=== PATIENT | female | born 1955 | race Caucasian/White ===

== ENCOUNTER → 2018-09-19 | Outpatient (CLI) | payer OTHER ==
--- NOTE | 2018-09-19 11:28 | Diagnostic Imaging Report ---
PROCEDURE: CT urinary tract, rule out kidney stone. TECHNIQUE: Multiple contiguous axial images were obtained through the abdomen and pelvis without the use of intravenous contrast. INDICATION: Left kidney pain and nausea. No prior studies are available for comparison. Imaging through lung bases does show some minimal scarring or atelectasis in the lingula. No discrete liver mass is seen. The gallbladder is surgically absent. No biliary ductal dilatation is identified. The pancreas and spleen are unremarkable. No adrenal mass is identified. Right kidney contains a tiny nonobstructing calculus in its midportion. Maybe a second calcification in the lower pole of the right kidney as well measuring 5 mm. No hydronephrosis is identified. Left kidney contains a very large staghorn calculus occupying the upper, mid and lower pole calyces and infundibuli extending into the renal pelvis. No left ureteral calculi are seen. There is mild left hydronephrosis. Aorta is calcified but nonaneurysmal. Small and large bowel loops are normal caliber and appear nonobstructed. The appendix is visualized. Appendix contains a tiny appendicolith. No inflammation surrounding the appendix is seen. There is no ascites. The bladder is unremarkable. There does appear to be central retroperitoneal lymphadenopathy. Largest node in left para-aortic location measures 3.1 x 1.8 cm. There are additional smaller nodes present as well. No mesenteric lymphadenopathy is seen. No definite inguinal lymphadenopathy is identified. There is a slightly prominent iliac node on the right measuring 1.5 x 0.8 cm. The bony structures are nonacute. IMPRESSION: 1. Very large staghorn calculus occupying the majority of the left renal collecting system and renal pelvis producing mild hydronephrosis. No definite ureteral calculi are seen. There are tiny nonobstructing right renal calculi present. 2. Central retroperitoneal lymphadenopathy, etiology indeterminate. Neoplastic or lymphomatous process cannot be excluded. A mildly prominent lymph node right iliac region is also seen. Dictated by: Dictated on workstation # [id number]
== END ==
LOC: RAD 10:46
PROVIDERS: ATTEND Family Medicine
DX: N13.2 Hydronephrosis with renal and ureteral calculous obstruction (principal); N30.90 Cystitis, unspecified without hematuria; R59.0 Localized enlarged lymph nodes; Z90.49 Acquired absence of other specified parts of digestive tract
CPT/HCPCS: 74176

== ENCOUNTER → 2018-09-25 | Outpatient (CLI) | payer OTHER ==
--- NOTE | 2018-09-25 17:02 | Diagnostic Imaging Report ---
EXAMINATION: Supine abdomen at 2:59 p.m. INDICATION: Left nephrolithiasis. TECHNIQUE: Two supine views were obtained. FINDINGS: The CT abdomen/pelvis exam of 09/19/2018 did note a staghorn calculus formation in the left kidney. That finding is again evident on this study and does not seem to have changed significantly. The prior study also noted two small (5 mm or less) within the right kidney. Those calcifications are difficult to appreciate on this study. There is still no evidence for a calculus along the expected paths of the ureter or overlying the bladder. The overall appearance of the abdomen is otherwise unremarkable. There is gas in both the large and small bowel in a nonspecific fashion. There is no sign of bowel obstruction. There is no mass or organomegaly appreciated. The osseous structures are intact. IMPRESSION: 1. The staghorn calculus seen involving the left kidney on the prior study is again evident and no different. The minute calculi within the right kidney are difficult to appreciate, however. 2. There is still no evidence for a calculus along the expected paths of the ureter. Dictated by: Dictated on workstation # [id number]
== END ==
LOC: RAD 14:48
PROVIDERS: ATTEND Urology
DX: N20.0 Calculus of kidney (principal)
CPT/HCPCS: 74018

== ENCOUNTER 2019-12-30 13:04 | Emergency (ER) | payer OTHER ==
[~2019-12-30] VITALS: Ht 162.5 cm; Wt 95.4 kg
[2019-12-30] MEDS ORDERED: NS IV 500 ML 500 ML IV STA (13:23)
--- NOTE | 2019-12-30 13:27 | ED General ---
General Chief Complaint: Dizziness/Syncope Stated Complaint: HYPERGLYCEMIA (362) Source of Information: Patient, Old Records, RN/MD History of Present Illness Date Seen by Provider: Dec 30, 2019 Time Seen by Provider: 13:24 Initial Comments This patient is a 64-year-old female that presents to the emergency department complaining of dizziness and not feeling well. Patient states this began going on all day. Patient's glucose after she left her work was 366. We did have a protein shake earlier. Patient states she has a long history of kidney problems and has had some sepsis due to pyelonephritis in the past. Patient denies any dysuria. Patient states she's been underneath a lot of stress in her PCP has prescribed Xanax but she refuses to take it because it makes her sleepy we'll do medical evaluation treatment is needed Timing/Duration: 4-6 Hours Allergies and Home Medications Allergies Coded Allergies: No Known Drug Allergies (Unverified , 12/30/19) Patient Home Medication List Home Medication List Reviewed: Yes Review of Systems Review of Systems Constitutional: No no symptoms reported; see HPI; No chills, No diaphoresis; dizziness; No fever, No malaise, No weakness, No weight gain, No weight loss, No other EENTM: No see HPI, No no symptoms reported, No ear discharge, No hearing loss, No ear pain, No blurred vision, No double vision, No eye pain, No tearing, No vision loss, No dental problems, No hoarseness, No mouth pain, No mouth swelling , No epistaxis, No nose congestion, No nose pain, No throat pain, No throat swelling, No other Respiratory: No no symptoms reported, No see HPI, No cough, No dyspnea on exertion, No hemoptysis, No orthopnea, No phlegm, No short of breath, No stridor, No wheezing, No other Cardiovascular: No no symptoms reported, No see HPI, No chest pain, No edema, No Hx of Intervention, No palpitations, No syncope, No vascular heart diseas, No other Gastrointestinal: No RUQ, No LUQ, No RLQ, No LLQ, No no symptoms reported, No see HPI, No abdominal pain, No constipation, No diarrhea, No dysphagia, No hematemesis, No heartburn, No jaundice, No loss of appetite, No melena, No nausea, No vomiting, No other Genitourinary: No no symptoms reported, No see HPI, No decreased output, No discharge, No dysuria, No frequency, No hematuria, No hesitancy, No incontinence, No nocturia, No pain, No other Musculoskeletal: No no symptoms reported, No see HPI, No back pain, No gout, No joint pain, No joint swelling, No muscle pain, No muscle stiffness, No muscle cramps, No muscle twitching, No muscle weakness, No neck pain, No other Skin: No no symptoms reported, No see HPI, No change in color, No change in hair/nails, No dryness, No hx of skin cancer, No lesions, No lumps, No pruritus, No rash, No other Psychiatric/Neurological: Denies No Symptoms Reported, Denies See HPI, Denies Anxiety, Denies Depressed, Denies Emotional Problems, Denies Headache, Denies Numbness, Denies Paresthesia, Denies Pre-Existing Deficit, Denies Seizure, Denies Tingling, Denies Tremors, Denies Weakness, Denies Other All Other Systems Reviewed Negative Unless Noted: Yes Past Jjhpbdf-Lxwgux-Maaviy Hx Patient Social History Recent Foreign Travel: No Contact w/Someone Who Travel: No Physical Exam Vital Signs Vital Signs - First Documented 12/30/19 13:10 Temp 36.6 Pulse 71 Resp 18 B/P (MAP) 156/77 (103) Pulse Ox 97 O2 Delivery Room Air Capillary Refill : Height, Weight, BMI Height: '" Weight: lbs. oz. kg; BMI Method: General Appearance: No Apparent Distress, WD/WN Respiratory: Chest Non Tender, Lungs Clear, Normal Breath Sounds, No Accessory Muscle Use, No Respiratory Distress Cardiovascular: Regular Rate, Rhythm, No Edema, No Gallop, No JVD, No Murmur, Normal Peripheral Pulses Back: Normal Inspection, No CVA Tenderness, No Vertebral Tenderness Neurologic/Psychiatric: Alert, Oriented x3, No Motor/Sensory Deficits, Normal Mood/Affect Skin: Normal Color, Warm/Dry Focused Exam Lactate Level 12/30/19 13:50: Lactic Acid Level 1.42 Lactic Acid Level Laboratory Tests Test 12/30/19 13:50 Lactic Acid Level 1.42 MMOL/L (0.50-2.00) Progress/Results/Core Measures Suspected Sepsis SIRS Temperature: Pulse: Respiratory Rate: Laboratory Tests 12/30/19 13:50: White Blood Count 7.9 Blood Pressure / Mean: 12/30/19 13:50: Lactic Acid Level 1.42 Laboratory Tests 12/30/19 13:50: Creatinine 0.70, Platelet Count 246, Total Bilirubin 0.4 Results/Orders Lab Results Laboratory Tests Test 12/30/19 13:30 12/30/19 13:41 12/30/19 13:50 Range/Units Urine Color YELLOW Urine Clarity SLT CLOUDY Urine pH 6.0 5-9 Urine Specific [place] 1.015 L 1.016-1.022 Urine Protein NEGATIVE NEGATIVE Urine Glucose (UA) 3+ H NEGATIVE Urine Ketones TRACE H NEGATIVE Urine Nitrite NEGATIVE NEGATIVE Urine Bilirubin NEGATIVE NEGATIVE Urine Urobilinogen 0.2 < = 1.0 MG/DL Urine Leukocyte Esterase TRACE H NEGATIVE Urine RBC (Auto) TRACE H NEGATIVE Urine RBC RARE /HPF Urine WBC 25-50 H /HPF Urine Squamous Epithelial Cells 0-2 /HPF Urine Crystals NONE /LPF Urine Bacteria NEGATIVE /HPF Urine Casts NONE /LPF Urine Mucus NEGATIVE /LPF Urine Culture Indicated YES Glucometer 305 H 70-110 MG/DL White Blood Count 7.9 4.3-11.0 10^3/uL Red Blood Count 4.66 4.35-5.85 10^6/uL Hemoglobin 13.3 11.5-16.0 G/DL Hematocrit 38 35-52 % Mean Corpuscular Volume 82 80-99 FL Mean Corpuscular Hemoglobin 29 25-34 PG Mean Corpuscular Hemoglobin Concent 35 32-36 G/DL Red Cell Distribution Width 13.9 10.0-14.5 % Platelet Count 246 130-400 10^3/uL Mean Platelet Volume 10.3 7.4-10.4 FL Neutrophils (%) (Auto) 55 42-75 % Lymphocytes (%) (Auto) 36 12-44 % Monocytes (%) (Auto) 7 0-12 % Eosinophils (%) (Auto) 2 0-10 % Basophils (%) (Auto) 0 0-10 % Neutrophils # (Auto) 4.4 1.8-7.8 X 10^3 Lymphocytes # (Auto) 2.9 1.0-4.0 X 10^3 Monocytes # (Auto) 0.5 0.0-1.0 X 10^3 Eosinophils # (Auto) 0.2 0.0-0.3 10^3/uL Basophils # (Auto) 0.0 0.0-0.1 10^3/uL Sodium Level 137 135-145 MMOL/L Potassium Level 4.2 3.6-5.0 MMOL/L Chloride Level 101 98-107 MMOL/L Carbon Dioxide Level 21 21-32 MMOL/L Anion Gap 15 H 5-14 MMOL/L Blood Urea Nitrogen 13 7-18 MG/DL Creatinine 0.70 0.60-1.30 MG/DL Estimat Glomerular Filtration Rate > 60 BUN/Creatinine Ratio 19 Glucose Level 313 H 70-105 MG/DL Lactic Acid Level 1.42 0.50-2.00 MMOL/L Calcium Level 9.4 8.5-10.1 MG/DL Corrected Calcium 9.2 8.5-10.1 MG/DL Total Bilirubin 0.4 0.1-1.0 MG/DL Aspartate Amino Transf (AST/SGOT) 32 5-34 U/L Alanine Aminotransferase (ALT/SGPT) 44 0-55 U/L Alkaline Phosphatase 109 40-136 U/L Total Protein 7.8 6.4-8.2 GM/DL Albumin 4.3 3.2-4.5 GM/DL My Orders Orders - JENNIFER VINES MD Ed Iv/Invasive Line Start (12/30/19 13:20) Cbc With Automated Diff (12/30/19 13:20) Comprehensive Metabolic Panel (12/30/19 13:20) Urinalysis (12/30/19 13:20) Ekg Tracing (12/30/19 13:20) Chest 1 View Ap/Pa Only (12/30/19 13:20) Ct Head Wo (12/30/19 13:20) Lactic Acid Analyzer (12/30/19 13:20) Ondansetron Injection (Zofran Injectio (12/30/19 13:30) Ns Iv 500 Ml (Sodium Chloride 0.9%) (12/30/19 13:23) Urine Culture (12/30/19 13:30) Medications Given in ED Current Medications Medications Dose Ordered Sig/Roger Route Start Time Stop Time Status Last Admin Dose Admin Ondansetron HCl 4 mg ONCE ONCE IVP 12/30/19 13:30 12/30/19 13:31 DC 12/30/19 13:59 4 MG Vital Signs/I&O 12/30/19 13:10 Temp 36.6 Pulse 71 Resp 18 B/P (MAP) 156/77 (103) Pulse Ox 97 O2 Delivery Room Air Capillary Refill : Progress Note : Time: 15:13 Progress Note Patient is negative evaluation in the emergency department of the hyperglycemia patient feeling much better blue the patient was have some issues with anxiety/panic issues. Patient states she's been underneath a lot of stress. Discussed at length with patient and she will continue with all home medications. Patient to get a home glucometer check glucose first thing in the morning and with meals. Follow-up with PCP with those readings in a few days discuss possible medication and treatment for her hyperglycemia/underlying diabetes. Patient is states understanding she is discharged home ECG Initial ECG Impression Date: Dec 30, 2019 Initial ECG Impression Time: 14:12 Initial ECG Rate: 74 Initial ECG Rhythm: Normal Sinus Initial ECG Intervals: Normal Initial ECG Impression: Normal Comment Sinus rhythm heart rate 74 Departure Impression Primary Impression: Anxiety Additional Impression: Hyperglycemia Disposition: 01 HOME, SELF-CARE Condition: Stable Departure-Patient Inst. Decision time for Depature: 15:16 Referrals: NAY HAND MD (PCP/Family) Primary Care Physician Patient Instructions: Anxiety, Adult (DC), Hyperglycemia, Adult (DC), Blood Glucose Monitoring Add. Discharge Instructions: Patient to get a home glucometer check glucose first thing in the morning and with meals. Follow-up with PCP with those readings in a few days discuss possible medication and treatment for her hyperglycemia/underlying diabetes. Patient is states understanding she is discharged home All discharge instructions reviewed with patient and/or family. Voiced understanding. JENNIFER VINES MD Dec 30, 2019 13:27
[2019-12-30 13:30] VITALS: BP 148/73
[2019-12-30] MEDS ORDERED: ONDANSETRON 4 MG/2 ML (SDV) Z0FRAN IVP ONE (13:30)
[2019-12-30 14:00] VITALS: BP 142/70
[2019-12-30 14:01] LABS: HEMATOCRIT 38 % (35-52); HEMOGLOBIN 13.3 G/DL (11.5-16.0); MEAN CORPUSCULAR HEMOGLOBIN 29 PG (25-34); MEAN CORPUSCULAR VOLUME 82 FL (80-99); WHITE BLOOD COUNT 7.9 10^3/uL (4.3-11.0)
[2019-12-30 14:02] LABS: BASOPHILS % (AUTO) 0 % (0-10); EOSINOPHILS % (AUTO) 2 % (0-10); LYMPHOCYTES % (AUTO) 36 % (12-44); MEAN CORPUSCULAR HGB CONC 35 G/DL (32-36); MEAN PLATELET VOLUME 10.3 FL (7.4-10.4); MONOCYTES % (AUTO) 7 % (0-12); NEUTROPHILS % (AUTO) 55 % (42-75); PLATELET COUNT 246 10^3/uL (130-400); RED CELL DISTRIBUTION WIDTH 13.9 % (10.0-14.5)
[2019-12-30 14:03] LABS: EOSINOPHILS # (AUTO) 0.2 10^3/uL (0.0-0.3); LYMPHOCYTES # (AUTO) 2.9 X 10^3 (1.0-4.0); MONOCYTES # (AUTO) 0.5 X 10^3 (0.0-1.0); NEUTROPHILS # (AUTO) 4.4 X 10^3 (1.8-7.8)
[2019-12-30 14:23] LABS: ALANINE AMINOTRANSFERASE 44 U/L (0-55); ALKALINE PHOSPHATASE 109 U/L (40-136); BILIRUBIN,TOTAL 0.4 MG/DL (0.1-1.0); BUN/CREATININE RATIO 19; CALCIUM 9.4 MG/DL (8.5-10.1); CARBON DIOXIDE 21 MMOL/L (21-32); CHLORIDE 101 MMOL/L (98-107); GFR ESTIMATED > 60; GLUCOSE 313 MG/DL (70-105); POTASSIUM 4.2 MMOL/L (3.6-5.0); SODIUM 137 MMOL/L (135-145); TOTAL PROTEIN 7.8 GM/DL (6.4-8.2)
[2019-12-30 14:24] LABS: ALBUMIN 4.3 GM/DL (3.2-4.5)
[2019-12-30 14:37] LABS: BILIRUBIN,URINE NEGATIVE (NEGATIVE); CLARITY,URINE SLT CLOUDY; COLOR,URINE YELLOW; GLUCOSE, URINE (UA) 3+ (NEGATIVE); KETONES,URINE TRACE (NEGATIVE); LEUKOCYTE ESTERASE ,URINE TRACE (NEGATIVE); NITRITE,URINE NEGATIVE (NEGATIVE); PROTEIN,URINE NEGATIVE (NEGATIVE)
[2019-12-30 14:38] LABS: BACTERIA,URINE NEGATIVE /HPF; RBC,URINE RARE /HPF; SQUAMOUS EPITHELIAL CELL,UR 0-2 /HPF; WBC,URINE 25-50 /HPF
--- NOTE | 2019-12-30 14:41 | Diagnostic Imaging Report ---
INDICATION: Lightheadedness and dizziness Frontal chest obtained at 0229 p.m. Heart and mediastinal silhouette are normal in appearance. The lungs are clear. There is no pneumothorax or pleural fluid. IMPRESSION: Negative chest. Dictated by: Dictated on workstation # [id number]
--- NOTE | 2019-12-30 14:45 | Diagnostic Imaging Report ---
INDICATION: Dizziness and lightheadedness. EXAMINATION: Noncontrast brain CT is performed. COMPARISON: There is no prior study for comparison. FINDINGS: There are no extra-axial fluid collections. No intracranial hemorrhage. No intracranial mass or mass effect. No midline shift. Ventricles are normal in size and position. There are no focal parenchymal abnormalities in the brain. Calvarial windows appear normal. IMPRESSION: Negative noncontrast brain CT. Dictated by: Dictated on workstation # [id number]
[2019-12-30 15:00] VITALS: BP 141/80
[2019-12-30 15:26] VITALS: BP 147/88
--- OUTSIDE RECORDS SUMMARY | 2019-12-30 16:21 | XMS REPORT | Continuity of Care Document ---
Author Organization Unknown Address Unknown Phone Unavailable Allergies Active Description Code Type Severity Reaction Onset Reported/Identified Relationship to Patient Clinical Status Yes No Known Drug Allergies [id number] Drug Allergy Unknown N/A 12/30/2019 Medications There is no data. Problems Date Dx Coded Attending Type Code Diagnosis Diagnosed By 09/21/2018 NAY HAND MD Ot N13.2 HYDRONEPHROSIS WITH RENAL AND URETERAL C 09/21/2018 NAY HAND MD Ot N30.90 CYSTITIS, UNSPECIFIED WITHOUT HEMATURIA 09/21/2018 NAY HAND MD Ot R59.0 LOCALIZED ENLARGED LYMPH NODES 09/21/2018 NAY HAND MD Ot Z90.49 ACQUIRED ABSENCE OF OTHER SPECIFIED PART 09/22/2018 NAY HAND MD Ot N13.2 HYDRONEPHROSIS WITH RENAL AND URETERAL C 09/22/2018 NAY HAND MD Ot N30.90 CYSTITIS, UNSPECIFIED WITHOUT HEMATURIA 09/22/2018 NAY HAND MD Ot R59.0 LOCALIZED ENLARGED LYMPH NODES 09/22/2018 NAY HAND MD Ot Z90.49 ACQUIRED ABSENCE OF OTHER SPECIFIED PART 09/26/2018 DOLLY CALLEJAS, ROSETTE Lane Ot N20.0 CALCULUS OF KIDNEY 10/09/2018 NAY HAND MD Ot N13.2 HYDRONEPHROSIS WITH RENAL AND URETERAL C 10/09/2018 NAY HAND MD Ot N30.90 CYSTITIS, UNSPECIFIED WITHOUT HEMATURIA 10/09/2018 NAY HAND MD Ot R59.0 LOCALIZED ENLARGED LYMPH NODES 10/09/2018 NAY HAND MD Ot Z90.49 ACQUIRED ABSENCE OF OTHER SPECIFIED PART Procedures There is no data. Results Test Result Range CBC - 01/15/19 10:10 WHITE BLOOD CELL COUNT 6.4 Thousand/uL 3 .8-10.8 RED BLOOD CELL COUNT 3.93 Million/uL 3.8 0-5.10 HEMOGLOBIN 10.7 g/dL 11.7-15.5 HEMATOCRIT 34.5 % 35.0-45.0 MCV 87.8 fL 80.0-100.0 MCH 27.2 pg 27.0-33.0 MCHC 31.0 g/dL 32.0-36.0 RDW 14.4 % 11.0-15.0 PLATELET COUNT 382 Thousand/uL 140-400 MPV 10.1 fL 7.5-12.5 ABSOLUTE NEUTROPHILS 3987 cells/uL 1500- 7800 ABSOLUTE LYMPHOCYTES 1798 cells/uL 850-3 900 ABSOLUTE MONOCYTES 378 cells/uL 200-950 ABSOLUTE EOSINOPHILS 218 cells/uL 15-500 ABSOLUTE BASOPHILS 19 cells/uL 0-200 NEUTROPHILS 62.3 % NRG LYMPHOCYTES 28.1 % NRG MONOCYTES 5.9 % NRG EOSINOPHILS 3.4 % NRG BASOPHILS 0.3 % NRG TSH - 01/15/19 10:10 TSH 10.12 mIU/L 0.40-4.50 CBC - 03/10/19 08:09 WHITE BLOOD CELL COUNT 5.6 Thousand/uL 3 .8-10.8 RED BLOOD CELL COUNT 4.43 Million/uL 3.8 0-5.10 HEMOGLOBIN 12.3 g/dL 11.7-15.5 HEMATOCRIT 39.0 % 35.0-45.0 MCV 88.0 fL 80.0-100.0 MCH 27.8 pg 27.0-33.0 MCHC 31.5 g/dL 32.0-36.0 RDW 14.8 % 11.0-15.0 PLATELET COUNT 266 Thousand/uL 140-400 MPV 9.9 fL 7.5-12.5 ABSOLUTE NEUTROPHILS 2621 cells/uL 1500- 7800 ABSOLUTE LYMPHOCYTES 2330 cells/uL 850-3 900 ABSOLUTE MONOCYTES 420 cells/uL 200-950 ABSOLUTE EOSINOPHILS 202 cells/uL 15-500 ABSOLUTE BASOPHILS 28 cells/uL 0-200 NEUTROPHILS 46.8 % NRG LYMPHOCYTES 41.6 % NRG MONOCYTES 7.5 % NRG EOSINOPHILS 3.6 % NRG BASOPHILS 0.5 % NRG CBC w/MANUAL DIFF - 04/30/19 07:54 WHITE BLOOD CELL COUNT 5.7 Thousand/uL 3 .8-10.8 RED BLOOD CELL COUNT 4.39 Million/uL 3.8 0-5.10 HEMOGLOBIN 12.7 g/dL 11.7-15.5 HEMATOCRIT 37.5 % 35.0-45.0 MCV 85.4 fL 80.0-100.0 MCH 28.9 pg 27.0-33.0 MCHC 33.9 g/dL 32.0-36.0 RDW 14.6 % 11.0-15.0 PLATELET COUNT 230 Thousand/uL 140-400 MPV 10.5 fL 7.5-12.5 ABSOLUTE NEUTROPHILS 3181 cells/uL 1500- 7800 ABSOLUTE MONOCYTES 422 cells/uL 200-950 ABSOLUTE EOSINOPHILS 57 cells/uL 15-500 ABSOLUTE BASOPHILS 0 cells/uL 0-200 NEUTROPHILS 55.8 % NRG LYMPHOCYTES 35.8 % NRG MONOCYTES 7.4 % NRG EOSINOPHILS 1.0 % NRG BASOPHILS 0 % NRG ABSOLUTE LYMPHOCYTES 2041 cells/uL 850-3 900 PLATELET ESTIMATION ADEQUATE ADEQUATE COMMENT(S) NRG TSH - 04/30/19 07:54 TSH 1.85 mIU/L 0.40-4.50 A1C - 04/30/19 07:54 HEMOGLOBIN A1c 6.9 % of total Hgb <5.7 PATHOLOGY REPORT (TISSUE PAHOLOGY) - 14:35 A SOURCE NRG A GROSS DESCRIPTION NRG A DIAGNOSIS NRG CLINICAL INFORMATION NRG PATHOLOGIST NRG Complete urinalysis with reflex to cultu re - 12/30/19 13:30 Urine color determination YELLOW NRG Urine clarity determination SLT CLOUDY NRG Urine pH measurement by test strip 6.0 5-9 Specific gravity of urine by test strip 1.015 1.016-1.022 Urine protein assay by test strip, semi-quantitative NEGATIVE NEGATIVE Urine glucose detection by automated test strip 3+ NEGATIVE Erythrocytes detection in urine sediment by light micr oscopy TRACE NEGATIVE Urine ketones detection by automated test strip TR ED NEGATIVE Urine nitrite detection by test strip NEGATIVE NEGATIVE Urine total bilirubin detection by test strip NEGA TIVE NEGATIVE Urine urobilinogen measurement by automated test strip (mass/volume) 0.2 mg/dL < = 1.0 Urine leukocyte esterase detection by dipstick TRA CE NEGATIVE Automated urine sediment erythrocyte cou nt by microscopy (number/high power field) RARE NRG Automated urine sediment leukocyte count by microscopy (number/high power field) [HPF] NRG Bacteria detection in urine sediment by light microsco py NEGATIVE NRG Squamous epithelial cells detection in u rine sediment by light microscopy 0-2 NRG Crystals detection in urine sediment by light microsco py NONE NRG Casts detection in urine sediment by light microscopy NONE NRG Mucus detection in urine sediment by light microscopy NEGATIVE NRG Complete urinalysis with reflex to culture YES NRG Capillary blood glucose measurement by g lucometer (mass/volume) - 12/30/19 13:41 Capillary blood glucose measurement by glucometer (mas s/volume) 305 mg/dL 70-110 Complete blood count (CBC) with automate d white blood cell (WBC) differential - 12/30/19 13:50 Blood leukocytes automated count (number/volume) 7.9 10*3/uL 4.3-11.0 Blood erythrocytes automated count (number/volume) 4.66 10*6/uL 4.35-5.85 Venous blood hemoglobin measurement (mass/volume) 13.3 g/dL 11.5-16.0 Blood hematocrit (volume fraction) 38 % 35-52 Automated erythrocyte mean corpuscular volume 82 [ foz_us] 80-99 Automated erythrocyte mean corpuscular h emoglobin (mass per erythrocyte) 29 pg 25-34 Automated erythrocyte mean corpuscular h emoglobin concentration measurement (mass/volume) 35 g/dL 32-36 Automated erythrocyte distribution width ratio 13. 9 % 10.0- 14.5 Automated blood platelet count (count/volume) 246 10*3/uL 130-400 Automated blood platelet mean volume measurement 10.3 [foz_us] 7.4-10.4 Automated blood neutrophils/100 leukocytes 55 % 42-75 Automated blood lymphocytes/100 leukocytes 36 % 12-44 Blood monocytes/100 leukocytes 7 % 0-12 Automated blood eosinophils/100 leukocytes 2 % 0-10 Automated blood basophils/100 leukocytes 0 % 0-10 Blood neutrophils automated count (number/volume) 4.4 10*3 1.8-7.8 Blood lymphocytes automated count (number/volume) 2.9 10*3 1.0-4.0 Blood monocytes automated count (number/volume) 0. 5 10*3 0.0-1.0 Automated eosinophil count 0.2 10*3/uL 0 .0-0.3 Automated blood basophil count (count/volume) 0.0 10*3/uL 0.0-0.1 Blood lactic acid measurement (moles/vol ume) - 12/30/19 13:50 Blood lactic acid measurement (moles/volume) 1.42 mmol/L 0.50-2.00 Comprehensive metabolic panel - 12/30/19 13:50 Serum or plasma sodium measurement (moles/volume) 137 mmol/L 135-145 Serum or plasma potassium measurement (moles/volume) 4.2 mmol/L 3.6-5.0 Serum or plasma chloride measurement (moles/volume) 101 mmol/L 98-107 Carbon dioxide 21 mmol/L 21-32 Serum or plasma anion gap determination (moles/volume) 15 mmol/L 5-14 Serum or plasma urea nitrogen measurement (mass/volume ) 13 mg/dL 7-18 Serum or plasma creatinine measurement (mass/volume) 0.70 mg/dL 0.60-1.30 Serum or plasma urea nitrogen/creatinine mass ratio 19 NRG Serum or plasma creatinine measurement w ith calculation of estimated glomerular filtration rate > NRG Serum or plasma glucose measurement (mass/volume) 313 mg/dL 70-105 Serum or plasma calcium measurement (mass/volume) 9.4 mg/dL 8.5-10.1 Serum or plasma total bilirubin measurement (mass/volu me) 0.4 mg/dL 0.1-1.0 Serum or plasma alkaline phosphatase abby surement (enzymatic activity/volume) 109 U/L 40-136 Serum or plasma aspartate aminotransfera se measurement (enzymatic activity/volume) 32 U/L 5-34 Serum or plasma alanine aminotransferase measurement (enzymatic activity/volume) 44 U/L 0-55 Serum or plasma protein measurement (mass/volume) 7.8 g/dL 6.4-8.2 Serum or plasma albumin measurement (mass/volume) 4.3 g/dL 3.2-4.5 CALCIUM CORRECTED 9.2 mg/dL 8.5-10.1 Capillary blood glucose measurement by g lucometer (mass/volume) - 12/30/19 15:22 Capillary blood glucose measurement by glucometer (mas s/volume) 263 mg/dL 70-110 Encounters ACCT No. Visit Date/Time Discharge Status Pt. Type Provider Facility Loc./Unit Complaint [id number] 05/12/2019 07:30:00 05/12/2019 23:59: 59 [facility] Outpatient NAY HAND [facility] [id number] 12/11/2019 14:00:00 Document Registration [id number] 04/30/2019 07:30:00 Document Registration [id number] 03/10/2019 08:00:00 Document Registration [id number] 01/15/2019 10:00:00 Document Registration [id number] 12/30/2019 13:06:00 15:26:00 DIS Emergency JASMYN CALLEJAS, JENNIFER Antonio [facility] ER FS HYPERGLYCEMIA (362) [id number] 09/25/2018 14:48:00 23:59:59 CLS Outpatient ROSETTE ALBERTO MD [facility] RAD LT RENAL STONE [id number] 09/19/2018 10:46:00 23:59:59 CLS Outpatient PEACE CALLEJAS, NAY Uribe [facility] RAD CYSTITIS
--- OUTSIDE RECORDS SUMMARY | 2019-12-30 16:21 | XMS REPORT ---
Author Author Chaparrita HAND Organization [facility] Address [address] [place] [address] Care Team Providers Care Heel Painter Name Role Phone NAY HAND Unavailable PROBLEMS Type Condition ICD9-CM Code EGV78-AM Code Onset Dates Condition S tatus SNOMED Code Problem Acquired hypothyroidism E03.9 Active 436195581 Problem Type 2 diabetes mellitus wit h other specified complication, without long-term current use of insulin E11.69 Active 80046118 Problem Primary insomnia F51.01 Active 397 2004 Problem Type 2 diabetes mellitus wit hout complication, without long-term current use of insulin E11.9 Active 620664647 Problem Staghorn calculus N20.0 Active 19 6053416 Problem Pure hypercholesterolemia E78.00 Acti ve 690292896 Problem Type 2 diabetes mellitus wit h other specified complication, without long-term current use of insulin E11.69 Active 64940417 ALLERGIES No Information ENCOUNTERS Encounter Location Date Diagnosis [facility] [address] [id number] [place] [address] 10 Jun, 2019 Bron[address]itis J40 [address] 340 [id number] [place] [address] May, Pure hypercholesterolemia E7 8.[address] [id number] [place] [address] May, Pure hypercholesterolemia E7 8.[address] [id number] [address] May, [address] [id number] [address] Apr, Encounter for screening mamm ogram for breast cancer Z12.[address] [id number] [address] Apr, Encounter for screening mamm ogram for breast cancer Z12.31 ; Primary insomnia F51.01 ; Acquired hypothyroidism E03.9 ; Pure hypercholesterolemia E78.00 and Type 2 diabetes mellitus with other specified complication, without long-term current use of insulin E11.[address] [id number] [place] [address] Apr, Acquired hypothyroidism E03. 9 and Type 2 diabetes mellitus without complication, without long-term current use of insulin E11.[address] [id number] [address] Mar, Type 2 diabetes mellitus wit hout complication, without long-term current use of insulin E11.9 ; Acquired hypothyroidism E03.9 and Pure hypercholesterolemia E78.[address] [id number] [place] [address] Mar, Aphthous ulcer K12.0 and Jagdish matitis L30.[address] [id number] [place] [address] Feb, Type 2 diabetes mellitus wit hout complication, without long-term current use of insulin E11.9 and Acquired hypothyroidism E03.[address] [id number] [place] [address] Feb, Acquired hypothyroidism E03. [address] [id number] [address] Jan, [address] [id number] [address] Dec, Type 2 diabetes mellitus wit hout complication, without long-term current use of insulin E11.9 ; Acquired hypothyroidism E03.9 and Pure hypercholesterolemia E78.[address] [id number] [place] [address] Dec, Type 2 diabetes mellitus wit hout complication, without long-term current use of insulin E11.9 and Acquired hypothyroidism E03.[address] [id number] [place] [address] November, [facility] Z01.818 [facility] [address] [id number] [place] [address] November, [facility]-op exam Z01.818 [facility] [address] [id number] [place] [address] Oct, [facility] [address]B [id number] [place] [address] Oct, [facility] [address] [id number] [place] [address] Aug, Acquired hypothyroidism E03. 9 ; Type 2 diabetes mellitus without complication, without long-term current use of insulin E11.9 ; Staghorn calculus N20.0 and Pure hypercholesterolemia E78.00 [facility] [address] [id number] [place] [address] Aug, Hematuria, unspecified type R31.9 ; Cystitis N30.90 ; Type 2 diabetes mellitus without complication, without long-term current use of insulin E11.9 and Acquired hypothyroidism E03.9 [facility] [address] [id number] [place] [address] Aug, Acute cystitis with hematuri a N30.01 and Dizziness R42 IMMUNIZATIONS No Known Immunizations SOCIAL HISTORY Never Assessed REASON FOR VISIT CT disk. PLAN OF CARE VITAL SIGNS MEDICATIONS No Known Medications RESULTS No Results PROCEDURES No Known procedures INSTRUCTIONS MEDICATIONS ADMINISTERED No Known Medications MEDICAL (GENERAL) HISTORY Type Description Date Medical History Hypothyroidism Medical History Type 2 diabetes mellitus Medical History Hypercholesterolemia Surgical History hysterectomy 2017 Surgical History Kidney Surgery x3 2019 Hospitalization History childbirth only Hospitalization History [facility]- x3 Kidney Surgeries 2019
== END 2019-12-30 15:26 | disposition home or self-care (01) ==
LOC: EDUNIT# 13:04 → ER FS 13:06
DX: F41.9 Anxiety disorder, unspecified (principal); R73.9 Hyperglycemia, unspecified
CPT/HCPCS: 36415; 70450; 71045; 80053; 81000; 82962; 83605; 85025; 87088; 93005

== ENCOUNTER 2020-09-06 07:11 | Outpatient (RCR) | payer OTHER ==
[~2020-09-06] VITALS: Ht 165.1 cm; Wt 79.5 kg
[2020-09-07] MEDS ORDERED: SEMA0.25 SQ (15:45)
[2020-09-07] MEDS ORDERED: MULT-1136 PO (15:45)
[2020-09-07] MEDS ORDERED: OMEG1000 PO (15:45)
[2020-09-07] MEDS ORDERED: POTA99TA25 PO (15:45)
[2020-09-07] MEDS ORDERED: LEVO150C4 PO (15:45)
== END 2020-12-05 | disposition home or self-care (01) ==
LOC: PREOP 07:11
PROVIDERS: ATTEND Surgery
DX: Z01.818 Encounter for other preprocedural examination (principal)

== ENCOUNTER 2020-09-13 10:33 | Day surgery (SDC) | payer OTHER ==
[~2020-09-13] VITALS: Ht 165.1 cm; Wt 79.5 kg
[~2020-09-13 10:33] MED LIST: LEVO150C4 PO; MULT-1136 PO; OMEG1000 PO; POTA99TA25 PO; SEMA0.25 SQ
[2020-09-13] MEDS ORDERED: LACTATED RINGERS 1,000 ML IV ONE (10:38)
[2020-09-13 10:41] VITALS: BP 108/61
[2020-09-13] MEDS ORDERED: LACTATED RINGERS 1,000 ML IV STA (10:44)
[2020-09-13] MEDS ORDERED: HURRICAINE EXT TUBE (BENZOCAINE) XX PRN (10:45)
--- NOTE | 2020-09-13 10:47 | Progress Note-Pre Operative ---
Pre-Operative Progress Note H&P Reviewed The H&P was reviewed, patient examined and no changes noted. Date Seen by Provider: Sep 13, 2020 Time Seen by Provider: 10:46 Date H&P Reviewed: Sep 13, 2020 Time H&P Reviewed: 10:46 Pre-Operative Diagnosis: abnormal ct scan esophagus, dysphagia ATTILA OTTO DO Sep 13, 2020 10:47
[2020-09-13] MEDS ORDERED: MIDAZOLAM 2 MG/2 ML (VERSED) VIAL ONE (10:51)
[2020-09-13] MEDS ORDERED: PROPOFOL INJECTION 50 ML IV ONE (10:51)
[2020-09-13 11:10] VITALS: BP 103/56
[2020-09-13 11:15] VITALS: BP 104/57
[2020-09-13 11:20] VITALS: BP_SYST 100; BP_DIAS 55; BP_DIAS 56
[2020-09-13 11:50] VITALS: BP 104/66
[2020-09-13 11:57] VITALS: BP 104/66
--- NOTE | 2020-09-13 12:01 | Anesthesia-General Post-Op ---
MAC Patient Condition Mental Status/LOC: Same as Preop Cardiovascular: Satisfactory Nausea/Vomiting: Absent Respiratory: Satisfactory Pain: Controlled Complications: Absent Post Op Complications Complications None Follow Up Care/Instructions Patient Instructions None needed. Anesthesiology Discharge Order Discharge Order Patient is doing well, no complaints, stable vital signs, no apparent adverse anesthesia problems. No complications reported per nursing. BRIANNE STAFFORD CRNA Sep 13, 2020 12:01
--- NOTE | 2020-09-13 18:35 | OPERATIVE REPORT ---
DATE OF SERVICE: 09/13/2020 PREOPERATIVE DIAGNOSIS: Abnormal CT scan of the esophagus and dysphagia. POSTOPERATIVE DIAGNOSIS: Normal EGD. PROCEDURE: Esophagogastroduodenoscopy. SURGEON: Attila Mendoza DO ANESTHESIA: Per EXTRACT PULLER. ESTIMATED BLOOD LOSS: None. COMPLICATIONS: None. INDICATIONS: The patient is a 65-year-old female who had a CT scan with slight abnormality on the distal esophagus. The patient has had previous dysphagia symptoms. She understands risks and benefits of procedure for further evaluation and wishes to proceed. Consent was signed in the chart. DESCRIPTION OF PROCEDURE: The patient was taken to the endoscopy suite, placed in left lateral recumbent position. Timeout was performed. Scope was inserted in mouth, down the esophagus, stomach and into the duodenum without difficulty. There were no polyps, masses or ulcerations in the duodenum. Scope was slowly retracted in the stomach where it was further insufflated. No polyps, masses or ulcerations. Scope was retroflexed noting no other pathology. Scope was returned to its normal position, slowly withdrawn to the distal esophagus, which had normal appearance. No polyps, masses or ulcerations. Normal mucosal appearance. Scope was then slowly retracted back to completely remove noting no other pathology. The patient tolerated procedure well without any complications, taken to recovery room in stable condition. RECOMMENDATIONS: The patient to continue with normal activities. If the patient has any change in condition or having dysphagia symptoms, she should be reevaluated at that time. Job ID: [id number] DocumentID: [id number] Dictated Date: 09/13/2020 14:53:01 Crop Specialist Date: 09/13/2020 18:34:28 Dictated By: ATTILA MENDOZA DO
== END 2020-09-13 11:58 | disposition home or self-care (01) ==
LOC: ENDO 10:33
PROVIDERS: ATTEND Surgery
DX: R13.10 Dysphagia, unspecified (principal); N39.0 Urinary tract infection, site not specified; E11.9 Type 2 diabetes mellitus without complications; D64.9 Anemia, unspecified; E07.9 Disorder of thyroid, unspecified; Z79.2 Long term (current) use of antibiotics; Z79.84 Long term (current) use of oral hypoglycemic drugs; Z79.899 Other long term (current) drug therapy; Z90.710 Acquired absence of both cervix and uterus; Z90.49 Acquired absence of other specified parts of digestive tract; Z98.51 Tubal ligation status; Z98.890 Other specified postprocedural states; Z82.49 Family history of ischemic heart disease and other diseases of the circulatory system; Z82.3 Family history of stroke
CPT/HCPCS: 82962

== ENCOUNTER → 2021-03-06 | Outpatient (CLI) | payer OTHER ==
--- NOTE | 2021-03-06 13:58 | Diagnostic Imaging Report ---
PROCEDURE: CT urinary tract, rule out kidney stone. TECHNIQUE: Multiple contiguous axial images were obtained through the abdomen and pelvis without the use of intravenous contrast. Auto Exposure Controls were utilized during the CT exam to meet ALARA standards for radiation dose reduction. INDICATION: Staghorn calculus. Correlation is made with prior CT from 09/19/2018. Lung bases are clear. No discrete liver mass is detected. Gallbladder is surgically absent. There is no biliary ductal dilatation. Pancreas and spleen are unremarkable. There appears to be a fatty lesion involving the right adrenal gland, unchanged consistent with myelolipoma. Left adrenal gland is unremarkable. Right kidney contains a small nonobstructing calculus in the lower pole. There has been a reduction in stone burden involving the left kidney when compared prior exam from 2019. There continue to be nonobstructing calculi in the upper and lower pole of the left kidney. No calculus occupies the renal pelvis on today's study. No ureteral calculi are seen. No bladder calculi are detected. Bladder is decompressed. Aorta is calcified but nonaneurysmal. Enlarged lymph nodes in the central retroperitoneum are again noted. This does appear to be decreased in size, now measuring 2.6 x 1.9 cm compared with 3.1 x 1.8 cm. No significant iliac or inguinal lymphadenopathy is identified. Small and large bowel loops are normal caliber. There is no free fluid or fluid collection. Bony structures are nonacute. IMPRESSION: 1. There has been overall decrease in stone burden involving the left kidney when compared with prior examination from 2019. No ureteral calculi are detected. 2. Overall decrease in size of the central retroperitoneal lymphadenopathy when compared with prior examination. Dictated by: Dictated on workstation # [id number]
== END ==
LOC: RAD FS 13:22
PROVIDERS: ATTEND Family Medicine
DX: N20.0 Calculus of kidney (principal); R59.0 Localized enlarged lymph nodes
CPT/HCPCS: 74176